=== PATIENT | male | born 1995 | race Hispanic/Latino ===

== ENCOUNTER 2021-09-26 20:10 | Emergency (ER) | payer SELFPAY ==
[2021-09-26] MEDS ORDERED: Acetaminophen 500 MG TAB ONE (20:19)
== END 2021-09-26 21:01 | disposition home or self-care (01) ==
LOC: ERS 20:10
DX: R51.9 Headache, unspecified (principal); R11.0 Nausea; R53.81 Other malaise; F17.210 Nicotine dependence, cigarettes, uncomplicated; Z20.822 Contact with and (suspected) exposure to COVID-19
CPT/HCPCS: 93005; U0003; U0005